=== PATIENT | female | born 1965 | race Caucasian/White ===

== ENCOUNTER → 2016-11-14 | Outpatient (CLI) | payer OTHER ==
--- NOTE | 2016-11-15 11:04 | CONS ---
CONSULTATION Date of Consultation: A 51-year-old lady who had been evaluated in the Sleep Center for possible obstructive sleep apnea-hypopnea syndrome. HISTORY OF PRESENT ILLNESS; SLEEP/WAKE EVALUATION: Patient's usual sleep schedule for around 9 p.m. until 5 a.m. FALLING ASLEEP: Sometimes she has problems with falling asleep. No TV in bedroom. She wakes up from sleep at least 2 times. She sometimes has problems with falling asleep again after awakenings. DURING THE SLEEP: She snores and during the surgery she has been told about episodes of sopped Breathing during the sleep. Positive history of restless legs, sweating. DURING THE DAY/WAKE STATE: In the morning she wakes up tired and strongly with memory debility, depression. [place] Sleepiness Scale is 4. PAST MEDICAL HISTORY: Positive for hypothyroidism, depression, recent symptoms of menopause. hot flashes. PAST SURGICAL HISTORY: Partial hysterectomy for the bleeding, foot surgery for bunion. MEDICATIONS: Zoloft, Synthroid, Premarin, AcipHex, Centrum Silver for Women. SOCIAL HISTORY: Negative for smoking. Alcohol consumption occasional. FAMILY HISTORY: Hypertension, , hyperlipidemia, arthritis, sinus headaches, sleep apnea, snoring, cancer, acid reflux, ulcers, diabetes, thyroid problems, anemia, restless legs. PHYSICAL EXAM: lady without distress. BP 130/73, HR 88, RR 16, height 5, 4. Weight 191, BMI 31. Neck 13-1/4 inch in circumference. Temperature 98.1. OROPHARYNX: Low position of soft palpate. Neck Supple, no JVD. Thyroid is not palpable. LUNGS Clear to percussion and to auscultation. Good air exchange. No wheezing or rhonchi. HEART S1, S2 regular. No murmurs, gallops, or rubs. ABDOMEN Soft and nontender. Bowel sounds are present. No organomegaly appreciated. EXTREMITIES No clubbing or cyanosis. AIR BRUSH OPERATOR Awake, alert, and oriented X3. Cranial nerves 2 to 7 intact. There is no fasciculation or atrophy. noted. No focal deficits observed. IMPRESSION: 1. Snoring, witnessed patient to stop breathing during the sleep. Low position of soft palate. Sometimes sleepiness during the day, wakenings from sleep, obstructive sleep apnea-hypopnea syndrome. 2. Hypothyroidism. 3. History of possible depression. 4. Menopause. 5. Mild obesity. 6. Status post partial hysterectomy secondary to bleeding. 7. Status post foot surgery. PLAN: 1. Polysomnography for evaluation of patient's breathing during sleep. 2. CPAP/BiPAP titration if sleep study confirms obstructive sleep apnea-hypopnea syndrome. 3. Preferable position during sleep on the side. 4. No driving if patient feels any sleepiness. Patient is aware of civil and criminal liability for unsafe driving. 5. I will see patient for follow up visit to explain results of testing and following plan. Thank you very much for referring this patient for consultation. Sincerely, Keyshawn Vogel MD, PhD, FAASM Diplomat of [employer] Rewinder of [facility] [place] MMODL / SANDRAN: [id number] /
== END ==
LOC: SLEEP 14:09
PROVIDERS: ATTEND Internal Medicine
DX: G47.33 Obstructive sleep apnea (adult) (pediatric) (principal); E03.9 Hypothyroidism, unspecified; E66.9 Obesity, unspecified; Z90.710 Acquired absence of both cervix and uterus; Z98.890 Other specified postprocedural states; Z79.899 Other long term (current) drug therapy
CPT/HCPCS: 99211

== ENCOUNTER → 2017-02-13 | Outpatient (CLI) | payer OTHER ==
--- NOTE | 2017-02-13 12:40 | PN ---
PROGRESS NOTE DATE OF SERVICE: 02/13/2017 A 51-year-old lady who has been followed in the Sleep Center for treatment of obstructive sleep apnea-hypopnea syndrome. Recently patient has been diagnosed with obstructive sleep apnea. She had a home sleep apnea test and subsequent CPAP titration and I discussed results of the sleep studies with patient in details. She has mild obstructive sleep apnea-hypopnea syndrome, which was poorly uncontrolled with CPAP at 7 cm of water during titration. Presently, patient received her CPAP unit and she started to use the equipment with a nasal pillow mask but has irritation related to the nasal pillows and sometimes the mask is off during the night. I checked her CPAP unit, CPAP pressure is 7 cm of water. The patient used it 28/30 nights for the last month and 25/30 nights for more than 4 hours. Average usage is 6.6 hours. Leak is 7 L/minute which is in normal range. Apnea-hypopnea index 2.4, which is normal range. Patient feels better, why she started to use her CPAP equipment in terms of her alertness during the day, but she still has sometimes tiredness during the day. [place] Sleepiness Scale today is 6. MEDICATIONS: Zoloft, Synthroid, Premarin, AcipHex, Centrum Silver. PHYSICAL EXAM: Patient in no distress. BP 146/85, HR 68, RR 16, weight 190, temp 97.8, oxygen saturation room air 97%. OROPHARYNX: Moderately low position of soft palate. ABDOMEN: Slightly obese. HEENT PERRLA, EOMI, evaluation of oropharynx showed tongue protrudes midline. Neck Supple, no JVD. Thyroid is not palpable. LUNGS Clear to percussion and to auscultation. Good air exchange. No wheezing or rhonchi. HEART S1, S2 regular. No murmurs, gallops, or rubs. ABDOMEN Soft and nontender. Bowel sounds are present. No organomegaly appreciated. EXTREMITIES No clubbing or cyanosis. LITHOGRAPHIC GENERAL WORKER Awake, alert, and oriented X3. Cranial nerves 2 to 7 intact. There is no fasciculation or atrophy. noted. No focal deficits observed. IMPRESSION: 1. Mild obstructive sleep apnea-hypopnea syndrome. Patient demonstrated good compliance with treatment benefitting from treatment. 2. Some irritations of nostrils related to nasal pillows. 3. Hypothyroidism. 4. Menopause. 5. Status post partial hysterectomy for bleeding. 6. Status post foot surgery. 7. History of possible depression. PLAN: 1. We will fit patient with small nasal mask. 2. Patient will try to use nasal pillows of different size with AYR gel to the nostrils. 3. Continue to use equipment every night for the whole night. 4. Watching and losing weight. 5. Sleep hygiene in time of bed for least 7-1/2 hours. 6. No driving if feeling sleepiness. Thank you very much for allowing me to participate in the management of your patient. Sincerely, Keyshawn Vogel MD, PhD, FAASM Diplomat of [employer] It Programmer of [facility] [place] MMODL / IJN: [id number] /
== END | disposition home or self-care (01) ==
LOC: SLEEP 11:36
PROVIDERS: ATTEND Internal Medicine
DX: G47.33 Obstructive sleep apnea (adult) (pediatric) (principal); E03.9 Hypothyroidism, unspecified; Z78.0 Asymptomatic menopausal state; Z90.711 Acquired absence of uterus with remaining cervical stump; Z98.890 Other specified postprocedural states; Z79.899 Other long term (current) drug therapy; Z79.890 Hormone replacement therapy

== ENCOUNTER → 2017-08-07 | Outpatient (CLI) | payer BC ==
--- NOTE | 2017-08-07 12:38 | SFUN ---
SLEEP CENTER FOLLOW UP NOTE DATE OF SERVICE: 08/07/2017 This 52-year-old lady has been followed in the sleep center for treatment of obstructive sleep apnea-hypopnea syndrome. Last time I saw patient in January of 2017; at that time she had some problems with her CPAP unit. We changed her mask and some adjustments. At the present time, patient is able to use her machine every night for the whole night. Basically without significant problem except sometimes her nasal mask may go out and she is starting to have a leak. She has episodes of hot flashes at night and that also sometimes may have some kind of issues related to his sleep. [place] Sleepiness Scale today is 7, which is in normal range. I checked the patient's CPAP unit. CPAP pressure is 7 cm of water. Usage 28/30 nights for more than 4 hours, which is perfect. Average usage is 7.6 hours. Leak is up to 18 L/minute, which is acceptable. Apnea-hypopnea index for the last month 3.3, which is normal range. Heated humidity is an automatic regimen. MEDICATIONS: Zoloft, Synthroid, AcipHex, Premarin, Centrum Silver. PHYSICAL EXAMINATION: During physical exam, patient is in no distress. VITAL SIGNS: BP 102/62, HR 72, RR 16, height 5 feet 4 inches, weight 173, which is 17 pounds less than during the previous visit, temperature 97.8, body mass index 29.6. HEENT: PERRLA, EOMI. Oropharynx moderately low position of soft palate. Neck: Supple, no JVD. Thyroid is not palpable. LUNGS: Clear to percussion and to auscultation. Good air exchange. No wheezing or rhonchi. HEART: S1, S2 regular. No murmurs, gallops, or rubs. ABDOMEN: Soft and nontender. Bowel sounds are present. No organomegaly appreciated. EXTREMITIES: No clubbing or cyanosis. SPIRAL WINDER: Awake, alert, and oriented X3. Cranial nerves 2 to 7 intact. There is no fasciculation or atrophy. noted. No focal deficits observed. IMPRESSION: 1. Obstructive sleep apnea-hypopnea syndrome. Patient demonstrated great compliance with treatment, benefitting from treatment. 2. History of hypothyroidism. 3. Status post partial hysterectomy. 4. Hot flashes, perimenopausal. 5. Status post foot surgery. 6. History of possible depression. PLAN: 1. Patient will continue to use her CPAP equipment every night for the whole night. 2. Continue losing weight. The patient significantly lost weight for the last 4 months. 3. We discussed possibility to adjust humidity in humidifier. I think patient may put humidity in the low range at the present time. 4. No driving if feeling sleepiness. 5. Sleep hygiene with regular time in bed for at least 8 hours. 6. We will continue prescription for all necessary CPAP supplies including mask, tube, filters. 7. Followup visit in 1 year or earlier if patient has any problems. Thank you very much for allowing me to participate in management of your patient. Sincerely, Keyshawn Vogel MD, PhD, FAASM Diplomat of [employer] Bad Credit Collector of [facility] [place] GERMAN / BRODERICK: [phone] /
== END | disposition home or self-care (01) ==
LOC: SLEEP 11:02
PROVIDERS: ATTEND Internal Medicine
DX: G47.33 Obstructive sleep apnea (adult) (pediatric) (principal); N95.1 Menopausal and female climacteric states; Z98.890 Other specified postprocedural states; Z86.39 Personal history of other endocrine, nutritional and metabolic disease; Z90.710 Acquired absence of both cervix and uterus; Z79.899 Other long term (current) drug therapy

== ENCOUNTER → 2018-01-01 | Outpatient (CLI) | payer BC ==
--- NOTE | 2018-01-01 12:30 | SFUN ---
SLEEP CENTER FOLLOW UP NOTE DATE OF SERVICE: 01/01/2018 A 52-year-old lady has been followed in Sleep Center for treatment of obstructive sleep apnea-hypopnea syndrome. Patient sometimes has a problem related to dryness in the mouth and adjustments of humidity. Otherwise, she is able to use machine without significant problem related to the mask or pressure. I checked the CPAP unit. CPAP pressure is 7 cm of water. Usage of the CPAP equipment is borderline leak 16 L/minute for the last 3 months and 22 L/minute for the last month. Apnea-hypopnea index for the last 6 months 2.4, which is absolutely normal range. [place] Sleepiness Scale today is 3. MEDICATIONS: Zoloft, Synthroid, AcipHex, Centrum Silver. PHYSICAL EXAM: Patient in no distress. BP 139/85, HR 70, RR 16, height 5 and 4, weight 168, body mass index 27.1, temperature 98.5, oxygen saturation on room air 100%. OROPHARYNX: Moderately low position of soft palate. Neck Supple, no JVD. Thyroid is not palpable. LUNGS Clear to percussion and to auscultation. Good air exchange. No wheezing or rhonchi. HEART S1, S2 regular. No murmurs, gallops, or rubs. ABDOMEN Soft and nontender. Bowel sounds are present. No organomegaly appreciated. EXTREMITIES No clubbing or cyanosis. PROCESS TECHNICIAN Awake, alert, and oriented X3. Cranial nerves 2 to 7 intact. There is no fasciculation or atrophy. noted. No focal deficits observed. IMPRESSION: 1. Obstructive sleep apnea-hypopnea syndrome. Patient benefitting from CPAP therapy. 2. History of hypothyroidism. 3. Hot flashes, perimenopausal. 4. Status post partial hysterectomy. 5. Status post foot surgery. 6. History of possible depression. PLAN: 1. Patient will continue to use her equipment every night for the whole night. 2. We will add chinstrap to the treatment. I believe there is a possibility the patient opens her mouth and that could be the reason for dryness. Subsequently, she increased her humidity, but because of hot flashes, it is still more high temperature for her. 3. No driving if feeling any sleepiness. 4. Followup visit in 1 year or earlier if patient has any problems. Thank you very much for allowing me to participate in the management of your patient. Sincerely, Keyshawn Vogel MD, PhD, FAASM Diplomat of [employer] Legislators of [facility] [place] MMMOHAMUD / BRODERICK: [id number] /
== END | disposition home or self-care (01) ==
LOC: SLEEP 09:45
PROVIDERS: ATTEND Internal Medicine
DX: G47.33 Obstructive sleep apnea (adult) (pediatric) (principal); N95.1 Menopausal and female climacteric states; E03.9 Hypothyroidism, unspecified; Z90.710 Acquired absence of both cervix and uterus; Z98.890 Other specified postprocedural states; Z99.89 Dependence on other enabling machines and devices; Z79.899 Other long term (current) drug therapy